=== PATIENT | female | born 1950 ===

== ENCOUNTER 2022-02-02 07:03 | Inpatient (IN) | payer OTHER | END 2022-02-03 10:34 | disposition home or self-care (01) | DRG 376 | LOC: O/R 07:03 → SURH 14:04 | PROVIDERS: ADMIT Surgery | PROC: 0DBP8ZZ Excision of Rectum, Via Natural or Artificial Opening Endoscopic (ICD-10-PCS; principal; 2022-02-02) | PROC: 0DJD8ZZ Inspection of Lower Intestinal Tract, Via Natural or Artificial Opening Endoscopic (ICD-10-PCS; 2022-02-02) | PROC: 3E0T3BZ Introduction of Anesthetic Agent into Peripheral Nerves and Plexi, Percutaneous Approach (ICD-10-PCS; 2022-02-02) | DX: C20 Malignant neoplasm of rectum (principal); K62.82 Dysplasia of anus; D12.8 Benign neoplasm of rectum; Z20.822 Contact with and (suspected) exposure to COVID-19 ==

== ENCOUNTER 2022-06-22 15:19 | Outpatient (CLI) | payer OTHER ==
[~2022-06-22 15:19] MED LIST: ABATINEX680 MG; BACLOFEN10 MG; CLONAZEPAM0.5 MG PO; DOCUSATE SODIU100 MG; EYE ITCH RELIEF5 ML; FAMOTIDINE40 MG; GABAPENTIN100 M2; INTESTINEX680 M1 PO; LOPRESS PO; LOPRESSOR25 MG; MONTELUKAST SOD10 MG; PRED FORTE5 ML; PROTONIX40 MG PO; PROZAC20 MG PO; RECTICARE30 GM TOP; RESTORIL PO; RESTORIL30 MG; SIMVASTATIN40 MG; ULTRACET PO; ZESTRIL5 MG PO
== END 2022-06-22 15:22 | disposition home or self-care (01) ==
LOC: LAB 15:19
PROVIDERS: ATTEND Specialist
DX: D64.9 Anemia, unspecified (principal); J45.998 Other asthma

== ENCOUNTER 2022-06-30 10:33 | Outpatient (CLI) | payer OTHER | END 2022-06-30 10:40 | disposition home or self-care (01) | LOC: TOM 10:33 | PROVIDERS: ATTEND Specialist | DX: D12.8 Benign neoplasm of rectum (principal); K57.93 Diverticulitis of intestine, part unspecified, without perforation or abscess with bleeding ==